=== PATIENT | male | born 1965 | race Caucasian/White ===

== ENCOUNTER 2020-10-03 13:01 | Outpatient (CLI) | payer OTHER | END 2020-10-03 13:02 | disposition home or self-care (01) | LOC: CSHCT 13:01 | PROVIDERS: ATTEND Otolaryngology Plastic Surgery within the Head & Neck | DX: E34.9 Endocrine disorder, unspecified (principal); E21.5 Disorder of parathyroid gland, unspecified; J34.9 Unspecified disorder of nose and nasal sinuses; Z98.890 Other specified postprocedural states | CPT/HCPCS: 70492 ==

== ENCOUNTER 2022-01-05 07:53 | Outpatient (CLI) | payer BC | END 2022-01-05 07:54 | disposition home or self-care (01) | LOC: CSHLAB 07:53 | PROVIDERS: ATTEND Internal Medicine | DX: Z20.822 Contact with and (suspected) exposure to COVID-19 (principal); J41.0 Simple chronic bronchitis | CPT/HCPCS: 87811 ==

== ENCOUNTER 2022-01-07 07:55 | Outpatient (CLI) | payer BC | END 2022-01-07 07:56 | disposition home or self-care (01) | LOC: CSHCP 07:55 | PROVIDERS: ATTEND Internal Medicine | DX: J41.0 Simple chronic bronchitis (principal); J98.4 Other disorders of lung | CPT/HCPCS: 94060; 94726; 94729; 94760 ==